=== PATIENT | female | born 1960 | race African-American/Black ===

== ENCOUNTER → 2024-04-02 10:03 | Outpatient (REF) | payer BC, SELFPAY ==
[2024-04-02 12:54] LABS: % Basophils 1.7 % (0-2); % Eosinophils 3.8 % (0-6); % Lymphocytes 51.9 % (20.5-51.1); % Monocytes 8.6 % (1.7-9.3); Absolute Basophils 0.1 10^3/uL (0-0.2); Absolute Eosinophils 0.2 10^3/uL (0-0.7); Absolute Lymphocytes 2.2 10^3/uL (1.2-3.4); Absolute Monocytes 0.4 10^3/uL (0.1-0.6); Absolute Neutrophils 1.4 10^3/uL (1.4-6.5); Mean Corpuscular Volume 91.5 fL (81.0-99.0); Nucleated Red Blood Cells % 0 %; Platelet Count 279 10^3/uL (130-400); Red Blood Cell Count 4.37 10^6/uL (4.20-5.40); White Blood Cell Count 4.2 10^3/uL (4.8-10.8)
[2024-04-02 13:29] LABS: ALT (SGPT) 32 U/L (0-35); AST (SGOT) 36 U/L (14-36); Albumin 4.2 g/dl (3.5-5.0); Alkaline Phosphatase 62 U/L (38-126); Blood Urea Nitrogen 13 mg/dl (7-17); Calcium 9.4 mg/dl (8.4-10.2); Carbon Dioxide 28 mmol/L (22-30); Chloride 101 mmol/L (98-107); Glucose 102 mg/dl (70-99); HDL Cholesterol 64 mg/dl; LDL Cholesterol, Calculated 66 mg/dl; Potassium 4.1 mmol/L (3.5-5.1); Sodium 137 mmol/L (135-145); Total Bilirubin 0.7 mg/dl (0.2-1.3); Total Cholesterol 145 mg/dl (50-199); Total Protein 6.9 g/dl (6.3-8.2); Triglyceride 79 mg/dl (10-149); Very Low Density Lipoprotein 15 mg/dl (0-30); eGFR > 60.00
[2024-04-02 14:42] LABS: Glycohemoglobin (HgbA1c) 5.8 % (4.0-5.6)
== END ==
LOC: HWLAB 10:03
PROVIDERS: ATTENDING PHYSICIAN Internal Medicine
DX: E78.2 Mixed hyperlipidemia (principal); Z00.00 Encounter for general adult medical examination without abnormal findings
CPT/HCPCS: 36415; 80053; 80061; 83036; 84443; 85025

== ENCOUNTER → 2024-06-14 13:27 | Outpatient (REF) | payer BC, SELFPAY ==
[2024-06-14 16:02] LABS: Hematocrit 39.1 % (37.0-47.0); Hemoglobin 13.8 g/dL (12.0-16.0); Mean Corp Hgb Conc. 35.3 g/dL (33.0-37.0); Mean Corpuscular Hgb 32.9 pg (27.0-31.0); Mean Corpuscular Volume 93.3 fL (81.0-99.0); Mean Platelet Volume 9.2 fL (7.4-10.4); Platelet Count 301 10^3/uL (130-400); Red Blood Cell Count 4.19 10^6/uL (4.20-5.40); Red Cell Dist. Width 13.5 % (11.5-14.5); White Blood Cell Count 5.1 10^3/uL (4.8-10.8)
[2024-06-14 16:10] LABS: Erythrocyte Sed Rate 18 mm/hour (0-20)
[2024-06-14 16:15] LABS: Uric Acid 5.2 mg/dl (2.5-6.2)
[2024-06-14 16:19] LABS: C-Reactive Protein < 5.00 mg/L (0.0-10.00)
[2024-06-14 16:47] LABS: % Basophils 1.6 % (0-2); % Eosinophils 3.8 % (0-6); % Immature Granulocytes 0.2 % (0-0.5); % Monocytes 8.5 % (1.7-9.3); % Neutrophils 34.9 % (42.2-75.2); Absolute Basophils 0.1 10^3/uL (0-0.2); Absolute Eosinophils 0.2 10^3/uL (0-0.7); Absolute Lymphocytes 2.6 10^3/uL (1.2-3.4); Absolute Monocytes 0.4 10^3/uL (0.1-0.6); Absolute Neutrophils 1.8 10^3/uL (1.4-6.5); Nucleated Red Blood Cells % 0 %
== END ==
LOC: HWLAB 13:27
PROVIDERS: ATTENDING PHYSICIAN Internal Medicine
DX: Z87.39 Personal history of other diseases of the musculoskeletal system and connective tissue (principal); D72.819 Decreased white blood cell count, unspecified
CPT/HCPCS: 36415; 84550; 85025; 85652; 86140

== ENCOUNTER → 2024-11-09 11:54 | Outpatient (REF) | payer BC, SELFPAY ==
[2024-11-09 16:30] LABS: ALT (SGPT) 45 U/L (0-35); AST (SGOT) 49 U/L (14-36); Albumin 4.4 g/dl (3.5-5.0); Alkaline Phosphatase 74 U/L (38-126); Blood Urea Nitrogen 17 mg/dl (7-17); Calcium 9.3 mg/dl (8.4-10.2); Carbon Dioxide 29 mmol/L (22-30); Chloride 100 mmol/L (98-107); Glucose 103 mg/dl (70-99); HDL Cholesterol 78 mg/dl; LDL Cholesterol, Calculated 70 mg/dl; Potassium 4.2 mmol/L (3.5-5.1); Sodium 136 mmol/L (135-145); Total Bilirubin 0.6 mg/dl (0.2-1.3); Total Cholesterol 165 mg/dl (50-199); Total Protein 7.1 g/dl (6.3-8.2); Triglyceride 85 mg/dl (10-149); Very Low Density Lipoprotein 17 mg/dl (0-30); eGFR > 60.00
[2024-11-10 10:31] LABS: Glycohemoglobin (HgbA1c) 5.8 % (4.0-5.6)
== END ==
LOC: HWLAB 11:54
PROVIDERS: ATTENDING PHYSICIAN Internal Medicine
DX: E78.2 Mixed hyperlipidemia (principal); R73.01 Impaired fasting glucose
CPT/HCPCS: 36415; 80053; 80061; 83036

== ENCOUNTER → 2025-05-10 08:53 | Outpatient (REF) | payer BC, SELFPAY ==
[2025-05-10 11:56] LABS: Hematocrit 41.1 % (37.0-47.0); Hemoglobin 14.2 g/dL (12.0-16.0); Mean Corp Hgb Conc. 34.5 g/dL (33.0-37.0); Mean Corpuscular Volume 91.9 fL (81.0-99.0); Nucleated Red Blood Cells % 0 %; Platelet Count 267 10^3/uL (130-400); Red Cell Dist. Width 12.8 % (11.5-14.5)
[2025-05-10 12:09] LABS: ALT (SGPT) 32 U/L (0-35); AST (SGOT) 35 U/L (14-36); Albumin 4.3 g/dl (3.5-5.0); Alkaline Phosphatase 56 U/L (38-126); Blood Urea Nitrogen 13 mg/dl (7-17); Calcium 9.5 mg/dl (8.4-10.2); Carbon Dioxide 28 mmol/L (22-30); Chloride 105 mmol/L (98-107); Glucose 102 mg/dl (70-99); HDL Cholesterol 58 mg/dl; LDL Cholesterol, Calculated 58 mg/dl; Potassium 3.9 mmol/L (3.5-5.1); Sodium 136 mmol/L (135-145); Total Protein 7.0 g/dl (6.3-8.2); Uric Acid 4.1 mg/dl (2.5-6.2); Very Low Density Lipoprotein 14 mg/dl (0-30); eGFR > 60.00
[2025-05-10 12:33] LABS: Glycohemoglobin (HgbA1c) 5.7 % (4.0-5.6)
== END ==
LOC: HWLAB 08:53
PROVIDERS: ATTENDING PHYSICIAN Internal Medicine
DX: Z00.01 Encounter for general adult medical examination with abnormal findings (principal); E78.2 Mixed hyperlipidemia
CPT/HCPCS: 36415; 80053; 80061; 83036; 84443; 84550; 85025